=== PATIENT | male | born 1985 | race Caucasian/White ===

== ENCOUNTER → 2016-08-26 | Outpatient (CLI) | payer BC ==
[~2016-08-26] MED LIST: ALBU1.252 AEROSOL; ALBU8.5H INH; AMPH15TA PO; CITA20TA9 PO; PRED20TA PO
--- NOTE | 2016-08-26 14:04 | DI ---
INDICATION: ITS.REASON: J45.901 Unspecified asthma with (acute) exacerbation, M54.2 PROCEDURE: CHEST 2-VIEWS UPRIGHT (PA \T\ LAT) Encounter: Initial COMPARISON: June 12, 2016 FINDINGS: The lungs are hyperinflated but grossly clear without evidence of focal abnormal airspace opacity. There is no pleural effusion or pneumothorax. The heart size, mediastinal contours and pulmonary vascularity are within normal limits. Scoliosis IMPRESSION: No acute cardiopulmonary disease. Hyperinflation consistent with asthma. .
== END ==
LOC: IMA 12:30
PROVIDERS: ATTEND Nurse Practitioner Family
DX: J45.901 Unspecified asthma with (acute) exacerbation (principal); M54.2 Cervicalgia

== ENCOUNTER 2016-09-22 18:46 | Emergency (ER) | payer BC ==
[~2016-09-22] VITALS: Ht 180.3 cm; Wt 89.9 kg
[2016-09-22 18:48] VITALS: Ht 180.3 cm; Wt 89.9 kg
--- OUTSIDE RECORDS SUMMARY | 2016-09-22 18:51 | XMS REPORT | Continuity of Care Document ---
Author Author [facility] Organization [facility] Address Unknown Phone Unavailable Support Name Relationship Address Phone KARLA LOPES APRN Caregiver [address] [place] [address] Unavailable KENTON HARRELL MD Caregiver [address] [place] [address] [place] [address] Unavailable JEEVAN ZAMUDIO Next Of Kin [address], [place] [id number] Insurance Providers Guarantor Deb Duran Address [address] [place] [address] Email DENIED 16 Payer [facility] Policy Number [id number] Subscriber's Name Deb Duran Relationship 18 Self Group Number [id number] Chief Complaint and Reason for Visit Chief Complaint Cough,Fever,Flu,URI Reason for Visit Neck pain on left side Asthma with acute exacerbation Problems Active Problems Medical Problem Onset Date Status Anxiety reaction Unknown Acute Dehydration Unknown Acute Past Problems Medical Problem Onset Date Asthma exacerbation Unknown Asthma with acute exacerbation Unknown Neck pain on left side Unknown Vision changes Unknown Medications Current Home Medications Medication Dose Units Route Directions Days Qty Instructions Start Date Albuterol Sulfate 1.25 Mg/3 Ml Vial.neb 1 Vial Aerosol Tx. Every 4 Hours Prn for Wheezing [address] Onur Davalos Direct Care Counselor [facility] [address] [phone] 08/26/16 Albuterol Sulfate (Proair Hfa 90 Mcg/Actuation) 8.5 Gm Hfa.aer.ad 1 Puff Inhalation Every 4 Hours as needed for Shortness Of Air/Wheezing Citalopram Hydrobromide (Citalopram Hbr) 20 Mg Tablet 20 Mg Oral Daily 06/12/16 Dextroamphetamine/Amphetamine (Amphetamine Salts 15 Mg Tablet) 15 Mg Tablet 15 Mg Oral Three Times A Day 06/12/16 Prednisone 20 Mg Tablet 60 Mg Oral Give With Breakfast 5 Days [address] Onur Davalos Direct Care Counselor [facility] [address] [place] [address] 08/26/16 Social History Social History Problem Response Recorded Date/Time Onset Date Status Hx Substance Use Y MARIJUANA 06/12/2016 7:35pm Not Applicable Not Applicable Hx Alcohol Use Y 2-4 BEERS DAILY 06/12/2016 7:35pm Not Applicable Not Applicable Tobacco Usage none 09/14/2013 12:51am Not Applicable Not Applicable Query Response Start Date Stop Date Smoking Status Unknown if ever smoked Hospital Discharge Instructions No hospital discharge instructions. Plan of Care Discharge Date 08/26/16 12:08pm Disposition 01 DISCHARGED HOME, SELF-CARE Condition at Discharge Stable Instructions/Education Provided Asthma (ED) Moderate and Severe Persistent Asthma (ED) Prescriptions See Medication Section Referrals KENTON HARRELL MD Address: [address] [place] [address] [place] [phone] Additional Instructions/Education Use albuterol nebulizer every 4 hours as needed. Take prednisone daily as directed beginning tomorrow. Follow with primary care provider. If symptoms are worsening today, go to the emergency room. Functional Status No functional status results. Allergies, Adverse Reactions, Alerts Allergen Type Severity Reaction Status Last Updated NKDA Allergy Unknown Active 08/26/16 Immunizations Query Response on File Recorded Date/Time Influenza Vaccine Hx NO 08/26/16 11:01am Tetanus Diptheria Vaccine History UNSURE 08/26/16 11:01am Tdap Vaccine Hx UNK 06/12/16 12:00am Vital Signs Acute Vital Signs Vital Response Date/Time Temperature (Fahrenheit) 97.4 deg F (96.8 - 99.1) 08/26/2016 10:57am Temperature (Calculated Celsius) 36.44589 degrees C (36.0 - 37.3) 08/26/2016 10:57am Pulse Rate (adult) 112 bpm (60 - 100) 08/26/2016 10:57am Respiratory Rate 20 breaths/min (10 - 20) 06/12/2016 9:25pm O2 Sat by Pulse Oximetry 95 % (90 - 100) 08/26/2016 10:57am Oxygen Flow Rate 3.00 L/min 06/12/2016 9:25pm Blood Pressure 133/74 mm Hg 08/26/2016 10:57am Height (Feet) 5 feet 06/12/2016 7:18pm Height (Inches) 72.00 inches 08/26/2016 10:57am Weight (Kilograms) 91.400 kg 08/26/2016 10:57am Body Mass Index (BMI) 27.0 08/26/2016 10:57am Results Laboratory Results Test Name Result Units Flags Reference Collection Date/Time Result Date/ Time Comments White Blood Count 5.7 T/MM3 4.5-11.0 06/12/2016 8:06pm 06/12/2016 8: 13pm Red Blood Count 5.07 M/MM3 4.50-5.90 06/12/2016 8:06pm 06/12/2016 8: 13pm Hemoglobin 16.1 GM/DL 13.5-17.5 06/12/2016 8:06pm 06/12/2016 8:13pm Hematocrit 47.4 % 41-53 06/12/2016 8:06pm 06/12/2016 8:13pm Mean Corpuscular Volume 93.5 UM3 80-100 06/12/2016 8:06pm 06/12/2016 8: 13pm Mean Corpuscular Hemoglobin 31.8 UUG 26-34 06/12/2016 8:06pm 2016 8:13pm Mean Corpuscular Hemoglobin Concent 34.0 GM/DL 31-37 06/12/2016 8:06pm 06/12/2016 8:13pm RDW Standard Deviation 43.1 FL 36.9-50.2 06/12/2016 8:06pm 06/12/2016 8 :13pm Platelet Count 186 T/MM3 130-400 06/12/2016 8:06pm 06/12/2016 8:13pm Mean Platelet Volume 9.3 UM3 L 9.4-12.4 06/12/2016 8:06pm 06/12/2016 8: 13pm Neutrophils (%) (Auto) 62.4 % 33-66 06/12/2016 8:06pm 06/12/2016 8: 13pm Lymphocytes (%) (Auto) 20.1 % L 23-45 06/12/2016 8:06pm 06/12/2016 8: 13pm Monocytes (%) (Auto) 10.1 % H 0-9.0 06/12/2016 8:06pm 06/12/2016 8:13pm Eosinophils (%) (Auto) 6.7 % H 0-4 06/12/2016 8:06pm 06/12/2016 8:13pm Basophils (%) (Auto) 0.5 % 0-2 06/12/2016 8:06pm 06/12/2016 8:13pm Immature Granulocyte % (Auto) 0.2 % 0.0-0.5 06/12/2016 8:06pm 2016 8:13pm Absolute Neutrophils (auto) 3.5 T/MM3 1.8-7.7 06/12/2016 8:06pm 2016 8:13pm Absolute Lymphocytes (auto) 1.1 T/MM3 1-4.8 06/12/2016 8:06pm 2016 8:13pm Absolute Monocytes (auto) 0.6 T/MM3 0-0.8 06/12/2016 8:06pm 06/12/2016 8:13pm Absolute Eosinophils (auto) 0.4 T/MM3 0-0.5 06/12/2016 8:06pm 2016 8:13pm Absolute Basophils (auto) 0.0 T/MM3 0-0.2 06/12/2016 8:06pm 06/12/2016 8:13pm Absolute Immature Granulocyte (auto 0.01 T/MM3 0.00-0.03 06/12/2016 8: 06pm 06/12/2016 8:13pm D-Dimer < 150 NG/ML 0-230 06/12/2016 8:06pm 06/12/2016 8:26pm <230 NG/ ML D-DU=PRESUMPTIVE NEGATIVE FOR PE OR DVT >230 NG/ML D-DU=ADDITIONAL EVAL FOR PE OR DVT RECOMMENDED Icterus Index < 2 0-7 06/12/2016 8:06pm 06/12/2016 8:22pm Chemistry Specimen Hemolysis < 15 0-25 06/12/2016 8:06pm 06/12/2016 8 :22pm 0-25: Specimen Exhibited No Hemolysis. Turbidity < 20 0-20 06/12/2016 8:06pm 06/12/2016 8:22pm Sodium Level 139 MEQ/L 134-144 06/12/2016 8:06pm 06/12/2016 8:22pm Potassium Level 3.8 MEQ/L 3.6-5 06/12/2016 8:06pm 06/12/2016 8:22pm Chloride Level 103 MEQ/L 98-107 06/12/2016 8:06pm 06/12/2016 8:22pm Carbon Dioxide Level 26 MEQ/L 22-30 06/12/2016 8:06pm 06/12/2016 8: 22pm Anion Gap 10 MEQ/L 5-15 06/12/2016 8:06pm 06/12/2016 8:22pm Blood Urea Nitrogen 11.0 MG/DL 9-20 06/12/2016 8:06pm 06/12/2016 8: 22pm Creatinine 1.1 MG/DL 0.8-1.5 06/12/2016 8:06pm 06/12/2016 8:22pm BUN/Creatinine Ratio 10 RATIO 6-26 06/12/2016 8:06pm 06/12/2016 8:22pm Glomerular Filtration Rate Calc 79 06/12/2016 8:06pm 06/12/2016 8: 22pm Glucose Level 95 MG/DL 75-110 06/12/2016 8:06pm 06/12/2016 8:22pm Calculated Osmolality 267 MOSM/KG 261-280 06/12/2016 8:06pm 06/12/2016 8:22pm Calcium Level 9.5 MG/DL 8.4-10.2 06/12/2016 8:06pm 06/12/2016 8:22pm Procedures Procedure Status Date Provider(s) Emergency dept visit Completed 06/11/16 Chest x-ray 2vw frontal&latl Completed 06/12/16 Metabolic panel total ca Completed 06/12/16 Complete cbc w/auto diff wbc Completed 06/12/16 Fibrin degradation quant Completed 06/12/16 Electrocardiogram tracing Completed 06/12/16 Airway inhalation treatment Completed 06/12/16 Airway inhalation treatment Completed 06/12/16 Ther/proph/diag inj iv push Completed 06/12/16 Emergency dept visit Completed 06/12/16 [id number]"INJECTION, METHYLPREDNISOLONE SODIUM SUCCINATE, UP TO Completed [id number]"ADMINISTERED THROUGH DME, CONCENTRATED FORM, 1 MG" Completed 06/12/16 Encounters Encounter Location Arrival/Admit Date Discharge/Depart Date Attending Provider Departed Emergency Room [facility] 08/26/16 10:52am 08/26/16 12: 08pm KARLA LOPES APRN Departed Emergency Room [facility] 06/12/16 7:16pm 06/12/16 9: 25pm MANNY REYEZ MD Departed Emergency Room [facility] 06/11/16 10:17pm 06/12/16 12: 23am DINORAH TURNER MD Recent Diagnosis
--- OUTSIDE RECORDS SUMMARY | 2016-09-22 18:51 | XMS REPORT | Continuity of Care Document ---
Author Author [facility] Organization [facility] Address Unknown Phone Unavailable Allergies Active Description Code Type Severity Reaction Onset Reported/Identified Relationship to Patient Clinical Status Yes No Known Medication Allergies NKMA N/A N/A 09/29/2014 Medications Problems Procedures Results Encounters ACCT No. Visit Date/Time Discharge Status Pt. Type Provider Facility Loc./Unit Complaint [id number] 06/13/2016 08:39:00 2016 23:59:00 DIS Outpatient Meenu Strickland [facility] ER RCK ASTHMA 06-12-16 [id number] 02/28/2016 16:05:00 2015 23:59:00 DIS Outpatient Colin Crzu [facility] FM MED CONSULT [id number] 01/11/2016 10:34:00 2015 23:59:00 DIS Outpatient Meenu Strickland [facility] TCPA aches all over chills slight sob [id number] 11/29/2015 15:52:00 2015 23:59:00 DIS Outpatient Colin Cruz [facility] PHY [id number] 06/17/2015 14:54:00 2015 23:59:00 DIS Outpatient Colin Cruz [facility] Asthma attacks [id number] 05/26/2015 13:42:00 2014 23:59:00 DIS Outpatient Leonardo Garcia [facility] Mur IC ASTHMA ATTACK [id number] 12/29/2014 15:17:00 2014 23:59:00 DIS Outpatient Jacob Younger [facility] DOC - Possible Whooping Cough [id number] 05/10/2014 08:38:00 2013 23:59:00 DIS Outpatient Colin Cruz [facility] med check on antidepressant [id number] 11/09/2015 16:53:00 ACT Outpatient Yeison Schultz [facility] IC BLOOD CLOT [id number] 09/29/2014 13:52:00 Document Registration
--- NOTE | 2016-09-22 19:05 | NUR ---
PT INFO PT REPORTS DRINKING ENERGY DRINKS DAILY. STATES HE TAKES IN APPROX 500MG OF CAFFEINE DAILY. STATES HX OF ANXIETY AND ADHD (TAKES ADDERALL 15MG TID). REPORTS HE'S BEEN 'WORKING A LOT OF OVERTIME LATELY' (STATES HE WORKS AT [employer]).
--- OUTSIDE RECORDS SUMMARY | 2016-09-22 19:07 | XMS REPORT | Continuity of Care Document ---
Author Author [facility] Organization [facility] Address Unknown Phone Unavailable Allergies Active Description Code Type Severity Reaction Onset Reported/Identified Relationship to Patient Clinical Status Yes No Known Medication Allergies NKMA N/A N/A 09/29/2014 Medications Problems Procedures Results Encounters ACCT No. Visit Date/Time Discharge Status Pt. Type Provider Facility Loc./Unit Complaint [id number] 06/13/2016 08:39:00 2016 23:59:00 DIS Outpatient Meenu Strickland [facility] ER RCK ASTHMA 06-12-16 [id number] 02/28/2016 16:05:00 2015 23:59:00 DIS Outpatient Colin Cruz [facility] FM MED CONSULT [id number] 01/11/2016 10:34:00 2015 23:59:00 DIS Outpatient Meenu Strickland [facility] FM TCPA aches all over chills slight sob [id number] 11/29/2015 15:52:00 2015 23:59:00 DIS Outpatient Colin Cruz [facility] PHY [id number] 06/17/2015 14:54:00 2015 23:59:00 DIS Outpatient Colin Cruz [facility] Asthma attacks [id number] 05/26/2015 13:42:00 2014 23:59:00 DIS Outpatient Leonardo Garcia [facility] Mur IC ASTHMA ATTACK [id number] 12/29/2014 15:17:00 2014 23:59:00 DIS Outpatient Jacob Younger [facility] FM DOC - Possible Whooping Cough [id number] 05/10/2014 08:38:00 2013 23:59:00 DIS Outpatient Colin Cruz Via [facility] med check on antidepressant [id number] 11/09/2015 16:53:00 ACT Outpatient Yeison Schultz [facility] IC BLOOD CLOT [id number] 09/29/2014 13:52:00 Document Registration
--- NOTE | 2016-09-22 19:08 | NUR ---
IMAGING PORTABLE CXR TO ROOM.
--- NOTE | 2016-09-22 19:10 | ERPDOC ---
Departure Disposition Decision Date: Sep 22, 2016 Disposition Decision Time: 19:45 (EVANGELISTZOBOLAChristian Powell APRN) Disposition: 01 DISCHARGED HOME, SELF-CARE Impression Impression (LISA SÁNCHEZChristian Powell APRN) Impression: Primary Impression: Chest pain Chest pain type: unspecified Qualified Codes: R07.9 - Chest pain, unspecified Severity: Moderate (EVANGELISTBOLA PATHAK APRN) Condition: Stable Seen By: Mid-level only (BOLA SÁNCHEZ APRN) Referrals: KENTON HARRELL MD (Family) Patient Instructions: Chest Pain (ED) Problems/Meds/Labs Reviewed?: Yes Medications reviewed and manag: Yes (EVANGELISTBOLA PATHAK APRN) Additional Instructions: Your labs and xray today are all normal. EKG does not show any abnormalities. I do want you to follow up with your primary care provider this week if these symptoms persist. You may need a further workup to find out the exact etiology of the pain. I do want you to cut back on the energy drinks and caffeine intake as well. Make sure that you are drinking plenty of fluids at home. Follow up care ordered?: Yes Mental Status: Alert, Oriented (EVANGELISTBOLA PATHAK APRN) HPI - Chest Pain General Chief Complaint: Chest Pain Stated Complaint: CHEST DISCOMFORT,NECK PRESSURE,TINGLING ARM AREA Time Seen by Provider: 18:56 Source: patient Exam Limitations: no limitations (EVANGELISTBOLA PATHAK APRN) Time Seen by Provider: 18:56 (MATTHEW NGUYEN MD) HPI - Chest Pain Initial Comments He presents to Er today for evaluation of left sided chest pain that radiates to the left shoulder and neck. The pain comes and goes and is sharp at times but is a numbness/tingling sensation on the left neck and the back of the left shoulder as well. Yesterday he was out and ate lunch. After this he felt dizzy and had to sit in the car for a bit. He does have trouble with anxiety. He also does drink at least 2 cans of an energy drink per day, he estimates about 500mg of caffeine per day. Has had some SOA at times. Did do an inhaler today to help with this. Denies any cardiac history personally or any family history of cardiac disease. Does smoke at times and drinks about a 4 pack of beer per night. Occurred At: home Onset/Timing: Gradual Duration: 1 week Activities at Onset/Context: none Location: substernal Quality: sharp, other (numbness/tingling sensation) Associated Symptoms: dizziness (yesterday, none today), irregular HR, shortness of breath, DENIES: abdominal pain, back pain, diaphoresis, edema, fast HR, fatigue, fever/chills, headache, heartburn, nausea/vomiting, rash, slow HR, swelling/lump in chest, syncope, weakness Chest Pain Radiation: neck, shoulders (left shoulder) Nitro Today/Relief: no nitro taken today Aspirin Treatment Today: unknown Prior Chest Pain/Cardiac Raquel: no prior chest pain, no prior cardiac workup Hx of Similar Symptoms: No (NOLD,BOLA N COMPRESSED GASES TESTER) Allergies: Coded Allergies: NKDA (Verified Allergy, Unknown, 08/26/16) Past History Past Medical History ENMT: eye injury Respiratory: asthma (NOLD,BOLA N COMPRESSED GASES TESTER) Surgical History Denies Surgeries (NOLD,BOLA N COMPRESSED GASES TESTER) Family History Family History: Negative (NOLD,BOLA N COMPRESSED GASES TESTER) Social History Does patient use chewing tobac: Yes Substance Use Type: does not use Alcohol Intake: daily (NOLD,BOLA N COMPRESSED GASES TESTER) Review of Systems Constitutional Constitutional: DENIES: chills, dizziness, fatigue, fever, weakness (NOLD, BOLA N COMPRESSED GASES TESTER) ENMT Ears: DENIES: drainage, pain Sinuses: DENIES: congestion, rhinorrhea Mouth/Throat: DENIES: painful swallowing, scratchy throat, sore throat (NOLD, BOLA N COMPRESSED GASES TESTER) Cardiovascular Cardiac: chest pain, DENIES: dyspnea on exertion, orthopnea Rhythm/Rate: palpitations, DENIES: irregular beat Vascular: DENIES: pedal edema, unilateral swelling (NOLD,BOLA N COMPRESSED GASES TESTER) Pulmonary Respiratory: DENIES: cough, dyspnea, sputum (NOLD,BOLA N COMPRESSED GASES TESTER) GI Upper Abdomen: DENIES: nausea, pain, vomiting Lower Abdomen: DENIES: constipation, diarrhea, pain (NOLD,BOLA N COMPRESSED GASES TESTER) Integumentary Skin: DENIES: rash (NOLD,BOLA N COMPRESSED GASES TESTER) Neurological General: DENIES: headache, numbness, tingling, weakness (NOLD,BOLA N COMPRESSED GASES TESTER) Physical Exam General General Nourishment: well nourished, well developed, appears stated age, no acute distress, adult General Body Habitus: well groomed (BOLA SÁNCHEZ APRN) Vitals and Pain First Documented Vital Signs Date Time Temp Pulse Resp B/P Pulse Ox O2 Delivery O2 Flow Rate FiO2 09/22/16 18:48 97.8 89 20 139/75 99 Room Air (MATTHEW NGUYEN MD) Vitals and Pain Weight: Kilograms: Height (feet): 5 Height (inches): 72.00 Triage Pain Scale: (BOLA SÁNCHEZ APRN) RN VS reviewed by Provider: Yes (BOLA SÁNCHEZ APRN) Normal Exams: Neck: Full range of motion, without adenopathy, JVD, bruits or thyromegaly Chest/Resp: Clear all giron, with good airflow, and symmetry bilaterally CV: Regular rate and rhythm, without murmur or gallop, Pulses 2+ all extremities, capillary refill, <2 seconds all ext., no pedal edema noted Abdomen: Bowel sounds positive, soft, non-tender, non-distended, no hepatosplenomegaly, masses or bruits noted Lymphatic: No lymphadenopathy, or lymphedema noted Integumentary: No rashes, hives, or bruising noted Neurologic: Patient is alert, and oriented Psychiatric: Patient exhibits, appropriate attention, emotion and affect (BOLA SÁNCHEZ APRN) Respiratory (brief) Respiratory: NOT FOUND: tenderness (BOLA SÁNCHEZ APRN) Differential Diagnoses Considering: Anxiety/Panic, Angina, Costochondritis, Esophageal Spasm, GERD, Muscle Spasm (BOLA SÁNCHEZ APRN) Progress Results/Orders Orders Procedure Category Date Status Time EKG EKG 09/22/16 Logged 18:48 Cbc W/Auto LAB 09/22/16 Complete Diff-Reflex Manual 19:05 Bmp - Basic Metabolic LAB 09/22/16 Complete Panel 19:05 Troponin I W LAB 09/22/16 Complete Hemolysis Index 19:05 Chest 1 View RAD 09/22/16 Taken 19:05 Aspirin (Asa) PHA 09/22/16 Complete 19:15 (MATTHEW NGUYEN MD) Lab Results Laboratory Tests Test 09/22/16 19:03 White Blood Count 5.1T/MM3 Red Blood Count 4.99M/MM3 Hemoglobin 16.0GM/DL Hematocrit 46.7% Mean Corpuscular Volume 93.6UM3 Mean Corpuscular Hemoglobin 32.1UUG Mean Corpuscular Hemoglobin Concent 34.3GM/DL RDW Standard Deviation 40.5FL Platelet Count 199T/MM3 Mean Platelet Volume 9.4UM3 Immature Granulocyte % (Auto) 0.0% Neutrophils (%) (Auto) 41.4% Lymphocytes (%) (Auto) 37.0% Monocytes (%) (Auto) 8.2% Eosinophils (%) (Auto) 12.8% Basophils (%) (Auto) 0.6% Absolute Immature Granulocyte (auto 0.00T/MM3 Absolute Neutrophils (auto) 2.1T/MM3 Absolute Lymphocytes (auto) 1.9T/MM3 Absolute Monocytes (auto) 0.4T/MM3 Absolute Eosinophils (auto) 0.7T/MM3 Absolute Basophils (auto) 0.0T/MM3 Turbidity < 20 Sodium Level 142MEQ/L Potassium Level 3.9MEQ/L Chloride Level 103MEQ/L Carbon Dioxide Level 27MEQ/L Anion Gap 12MEQ/L Blood Urea Nitrogen 17.0MG/DL Creatinine 1.2MG/DL Glomerular Filtration Rate Calc 71 BUN/Creatinine Ratio 14RATIO Glucose Level 100MG/DL Calculated Osmolality 275MOSM/KG Calcium Level 9.5MG/DL Icterus Index < 2 Troponin I < 0.012ng/ml Chemistry Specimen Hemolysis < 15 (MATTHEW NGUYEN MD) Medications Current ED Medications Aspirin (ASA) 324 mg O ONCE PO Last administered on 09/22/16 19:14; Start at 19:15; Stop 09/22/16 at 19:16; Status DC (MATTHEW NGUYEN MD) Progress Progress CBC, BMP, and troponin today are normal. Chest xray is negative. EKG is without ST changes. Will go ahead and dismiss to home. I did talk to him about cutting back on the energy drinks and making sure that he is drinking plenty of water throughout the day. He does report that he has not been sleeping well at all and recently had a promotion at work that has added stress to his life. Will have him follow up in clinic with his PCP this week if he is not improving for further workup. (BOLA SÁNCHEZ APRN) EKG EKG : Rate: 60-100 Rhythm: sinus [place]: normal QRS: normal Intervals: normal ST/T: normal Interpreted by: signing physician (MATTHEW NGUYEN MD) Xray Xray : Reason for Exam: chest pain Xray: CXR PA/Lat Interpretation: Normal (BOLA SÁNCHEZ APRN) Xray : Xray: CXR PA/Lat Interpretation: Normal, Interpreted by Me (no acute cardiopulmonary findings ) (MATTHEW NGUYEN MD) BOLA SÁNCHEZ APRN Sep 22, 2016 19:10 MATTHEW NGUYEN MD Sep 22, 2016 19:53
[2016-09-22 19:13] LABS: BASOPHILS % (AUTO) 0.6 % (0-2); EOSINOPHILS # (AUTO) 0.7 T/MM3 (0-0.5); EOSINOPHILS % (AUTO) 12.8 % (0-4); HCT - HEMATOCRIT 46.7 % (41-53); LYMPHOCYTES # (AUTO) 1.9 T/MM3 (1-4.8); MEAN CORPUSCULAR HGB 32.1 UUG (26-34); MEAN CORPUSCULAR HGB CONC(MCHC 34.3 GM/DL (31-37); MEAN CORPUSCULAR VOLUME 93.6 UM3 (80-100); MEAN PLATELET VOLUME 9.4 UM3 (9.4-12.4); MONOCYTES # (AUTO) 0.4 T/MM3 (0-0.8); MONOCYTES % (AUTO) 8.2 % (0-9.0); NEUTROPHILS #(AUTO)-ABSOLUTE 2.1 T/MM3 (1.8-7.7); NEUTROPHILS % (AUTO) 41.4 % (33-66); RED BLOOD COUNT 4.99 M/MM3 (4.50-5.90); WBC - WHITE BLOOD COUNT 5.1 T/MM3 (4.5-11.0)
[2016-09-22] MEDS ORDERED: ASPIRIN 81 MG CHEWABLE TABLET PO ONE (19:15)
[2016-09-22 19:20] LABS: ANION GAP 12 MEQ/L (5-15); BUN/CREATININE RATIO 14 RATIO (6-26); CALCIUM 9.5 MG/DL (8.4-10.2); CHLORIDE 103 MEQ/L (98-107); CO2 - CARBON DIOXIDE 27 MEQ/L (22-30); CREATININE 1.2 MG/DL (0.8-1.5); GLOMERULAR FILTRATION RATE 71; GLUCOSE 100 MG/DL (75-110); POTASSIUM 3.9 MEQ/L (3.6-5); SODIUM 142 MEQ/L (134-144)
[2016-09-22 20:00] VITALS: BP 127/59; PULSE 84; RESP 20; TEMP 97.8; O2SAT 98
--- NOTE | 2016-09-22 20:00 | NUR ---
DEPART PT GIVEN DI FOR CP AND F/U. PT VERBALIZES UNDERSTANDING OF DI. QUESTIONS ASKED/ANSWERED - DENIES FURTHER QUESTIONS/NEEDS AT THIS TIME. IV SITE REMOVED. PERSONAL BELONGINGS GATHERED. PT AMBULATED/ESCORTED TO ED EXIT - GAIT STABLE, NO SIGN OF DISTRESS AT THIS TIME.
--- NOTE | 2016-09-23 09:25 | DI ---
Indication: ITS.REASON: chest pain PROCEDURE: CHEST 1 VIEW: Encounter: Initial Comparison: August 26, 2016 FINDINGS: The lungs are clear. There is no abnormal airspace opacity, pleural effusion or pneumothorax identified. The heart size, pulmonary vasculature and mediastinum are within normal limits. IMPRESSION: No acute cardiopulmonary abnormality. .
== END 2016-09-22 20:00 | disposition home or self-care (01) ==
LOC: ED 18:46
DX: R07.89 Other chest pain (principal); R20.2 Paresthesia of skin; R42 Dizziness and giddiness
CPT/HCPCS: 80048; 84484; 85025; 93005